=== PATIENT | female | born 1980 | race Caucasian/White ===

== ENCOUNTER 2022-11-07 06:41 | Day surgery (SDC) | payer BC ==
[~2022-11-07 06:41] MED LIST: Lactated Ringers 1,000 ML IV SCH; ceFAZolin 2 GM in Sodium Chloride 0.9% 50 ML IV ONE
[2022-11-07] MEDS ORDERED: Lidocaine 1% 20 ML MDV ONE (07:18)
[2022-11-07] MEDS ORDERED: Bupivacaine 0.5% 30 ML SDV ONE (07:18)
[2022-11-07] MEDS ORDERED: Propofol 200 MG/20 ML SDV ONE ×2 (07:43→13:08)
[2022-11-07] MEDS ORDERED: fentaNYL 250 MCG/5 ML SDV ONE (07:43)
[2022-11-07] MEDS ORDERED: propofoL 50 ML ONE (07:55)
[2022-11-07] MEDS ORDERED: ceFAZolin 2 GM Vial ONE (08:03)
[2022-11-07] MEDS ORDERED: ePHEDrine 50 MG/ML SDV ONE (08:24)
[2022-11-07 09:08] VITALS: BP 108/68; PULSE 82
[2022-11-07] MEDS ORDERED: fentaNYL 100 MCG/2 ML SDV ONE (13:11)
[2022-11-07] MEDS ORDERED: Oxytocin 10 Units/1 ML SDV ONE (13:19)
[2022-11-07] MEDS ORDERED: Ropivacaine 0.5% 5 MG/ML 30 ML SDV ONE (13:24)
[2022-11-07] MEDS ORDERED: Dexmedetomidine 200 MCG/2 ML SDV ONE (13:25)
== END 2022-11-07 09:15 | disposition home or self-care (01) ==
LOC: MW.SDS 06:41
PROVIDERS: ATTEND Surgery
DX: D17.22 Benign lipomatous neoplasm of skin and subcutaneous tissue of left arm (principal); Z87.891 Personal history of nicotine dependence
CPT/HCPCS: 23076; 81025; J0690; J2704; J3010; J3490; J7120; 00300; J2590; J2795